=== PATIENT | male | born 1960 | race Caucasian/White ===

== ENCOUNTER 2020-02-25 18:50 | Emergency (ER) | payer BC ==
[2020-02-25 19:00] VITALS: BP 142/93
[2020-02-25] MEDS ORDERED: cephALEXin 250 MG CAPSULE PO STA (19:11)
[2020-02-25] MEDS ORDERED: SULFAMETH/TRIMETH DS 800/160 MG TABLET PO STA (19:11)
[2020-02-25] MEDS ORDERED: valACYclovir 500 MG TABLET PO STA ×2 (19:11→19:26)
--- NOTE | 2020-02-25 19:14 | ED Physician Documentation ---
History of Present Illness - Stated complaint Stated Complaint: POSSIBLE SHINGLES - Chief complaint Chief Complaint: General - History obtained from History obtained from: Patient - History of Present Illness Timing: Yesterday Pain level max: 4 Pain level now: 3 - Additonal information Additional information: Patient with a rash to the gluteal fold, right side for the past 2 days. Nothing makes it better or worse. Had a telehealth visit today, his PCP was concerned about shingles and told him to come to the emergency department. Patient has been feeling fatigued lately. No fevers. No cough. Nothing makes it better or worse. Has never had similar symptoms. Review of Systems Constitutional: denies: Fever, Chills Respiratory: denies: Cough GI: denies: Abdominal Pain, Nausea, Vomiting, Diarrhea Skin: denies: Rash Musculoskeletal: denies: Neck pain, Back pain Neurologic: denies: Headache PD PAST MEDICAL HISTORY - Past Medical History Past Medical History: No - Past Surgical History Past Surgical History: No - Present Medications Home Medications: Ambulatory Orders Medication Instructions Recorded Confirmed Cephalexin [Keflex] 500 mg PO Q6H #28 capsule 02/25/20 Sulfamethox/Trimeth 800/160 1 each PO BID #14 tablet 02/25/20 [Bactrim Ds 800/160] Valacyclovir HCl [Valacyclovir] 1,000 mg PO TID #21 tablet 02/25/20 - Allergies Allergies/Adverse Reactions: Allergies Allergy/AdvReac Type Severity Reaction Status Date / Time No Known Drug Allergies Allergy Verified 02/25/20 18:56 - Living Situation Living Situation: reports: With family Living Arrangement: reports: At home - Social History Does the pt smoke?: No Does the pt have substance abuse?: No PD ED PE NORMAL - Vitals Vital signs reviewed: Yes - General General: Alert and oriented X 3, No acute distress - HEENT HEENT: Moist mucous membranes - Neck Neck: Supple, no meningeal sign - Derm Derm: Warm and dry - Extremities Extremities: Other (There is an erythematous area to the right side of the gluteal fold. This is approximately 2 x 6 cm with some small vesicles. No induration. No fluctuance.) - Neuro Neuro: Alert and oriented X 3 Results - Vitals Vitals: Vital Signs - 24 hr 02/25/20 18:56 Temperature 36.7 C Heart Rate 77 Respiratory 16 Rate Blood Pressure 142/93 H O2 Saturation 96 Oxygen O2 Source Room air PD MEDICAL DECISION MAKING - ED course Complexity details: considered differential, d/w patient ED course: Patient with what appears to be a cellulitis, possible bullous impetigo of the right gluteal fold. Could be shingles as well, though I feel this is less likely. We will cover with the valacyclovir. Will place him on oral antibiotics as well. No abscess to drain at this time. We will have him follow closely with his doctor. Patient counseled regarding signs and symptoms for which I believe and urgent re-evaluation would be necessary. Patient with good understanding of and agreement to plan and is comfortable going home at this time This document was made in part using voice recognition software. While efforts are made to proofread this document, sound alike and grammatical errors may occur. Departure - Departure Disposition: 01 Home, Self Care Clinical Impression: Staphylococcal infection of skin Shingles Qualifiers: Herpes zoster complications: without complications Qualified Code(s): B02.9 - Zoster without complications Condition: Good Instructions: ED Staph Infec Abx Tx Only, ED Shingles Follow-Up: your,doctor in 1 week [Other] Prescriptions: Cephalexin [Keflex] 500 mg PO Q6H #28 capsule Sulfamethox/Trimeth 800/160 [Bactrim Ds 800/160] 1 each PO BID #14 tablet Valacyclovir HCl [Valacyclovir] 1,000 mg PO TID #21 tablet Comments: Take all medication until gone. Return if you worsen. This should improve over the next 48 hours. Follow-up with your doctor for recheck in 1 week. Discharge Date/Time: 02/25/20 19:41
== END 2020-02-25 19:41 | disposition home or self-care (01) ==
LOC: ED 18:50
DX: L08.9 Local infection of the skin and subcutaneous tissue, unspecified (principal); B95.8 Unspecified staphylococcus as the cause of diseases classified elsewhere; B02.9 Zoster without complications
CPT/HCPCS: 99283; 99284; A9270